=== PATIENT | female | born 1950 | race American Indian/Alaskan Native ===

== ENCOUNTER 2019-09-10 09:17 | Outpatient (CLI) | payer OTHER ==
--- NOTE | 2019-09-10 11:38 | Mammography Report ---
DIGITAL SCREENING MAMMOGRAM WITH CAD, 09/10/2019 INDICATION: Routine screening mammography. TECHNIQUE: Digital bilateral 2D mammography was obtained in the craniocaudal and mediolateral obliq ue projections. This examination was interpreted with the benefit of Computer-Aided Detection analysi s. COMPARISON: 06/02/2018 FINDINGS: Breast Density: The breasts are almost entirely fatty. There is no evidence of dominant mass, suspicious calcifications or architectural distortion in eithe r breast. IMPRESSION: No mammographic evidence of malignancy. Follow up recommendation: Routine yearly BI-RADS Category 1: Negative. A "normal" or negative report should not discourage follow up or biopsy of a clinically significant f inding. A written summary of these findings will be mailed to the patient. The patient will be entered into a mammography reporting system which will generate a reminder letter for the patient's next appointmen t at the appropriate interval. The [employer] recommends yearly mammograms starting at age 40 and continuing as l liu as a woman is in good health. Breast MRI is recommended for women with an approximate 20-25% or greater lifetime risk of breast cancer, including women with a strong family history of breast or ova yu cancer or who have been treated for Hodgkin's disease. Signer Name: Roby Stephenson MD Signed: 09/10/2019 11:34 AM Workstation Name: [id number]
== END 2019-09-10 09:18 | disposition home or self-care (01) ==
LOC: MAMMO 09:17
PROVIDERS: ATTEND Family Medicine
DX: Z12.31 Encounter for screening mammogram for malignant neoplasm of breast (principal); N64.89 Other specified disorders of breast
CPT/HCPCS: 77067

== ENCOUNTER 2020-07-18 13:29 | Emergency (ER) | payer MEDICARE, OTHER ==
[2020-07-18 16:59] VITALS: BP 170/71
--- NOTE | 2020-07-18 17:00 | Emergency Department Report ---
ED Upper Extremity Inj HPI - General Chief Complaint: Extremity Injury, Upper Stated Complaint: LFT ARM INJURY/PAIN Time Seen by Provider: 07/18/20 16:55 Source: patient Mode of arrival: Ambulatory Limitations: No Limitations - History of Present Illness Initial Comments: This is a 69-year-old female nontoxic, well nourished in appearance, no acute signs of distress presents to the ED with c/o of left forearm pain x several days. Patient stated had an injury to left forearm after a trip and fall. Patient denies any other trauma or injuries. Denies any decreased ROM. denies joint swelling, redness, or abnormal gait. Denies any fever, chills, nausea, vomiting, headache, stiff neck, chest pain or shortness of breath. Patient denies any numbness or tingling. Denies any allergies. MD Complaint: Injury to:: left, forearm Other Extremity Injury: Forearm: Left Severity scale (0 -10): 3 Improves With: none Worsens With: none Context: fall Associated Symptoms: denies other symptoms. denies: weakness, numbness, neck pain, suspects foreign body, nausea/vomiting, heard/felt popping sensat - Related Data Allergies Allergy/AdvReac Type Severity Reaction Status Date / Time fluoxetine [From Prozac] AdvReac Rash Unverified 06/02/18 10:10 ED Review of Systems ROS: Stated complaint: LFT ARM INJURY/PAIN Other details as noted in HPI Comment: All other systems reviewed and negative Constitutional: denies: chills, fever Eyes: denies: eye pain, eye discharge, vision change ENT: denies: ear pain, throat pain Respiratory: denies: cough, shortness of breath, wheezing Cardiovascular: denies: chest pain, palpitations Endocrine: no symptoms reported Gastrointestinal: denies: abdominal pain, nausea, diarrhea Genitourinary: denies: urgency, dysuria, discharge Musculoskeletal: denies: back pain, joint swelling, arthralgia Skin: denies: rash, lesions Neurological: denies: headache, weakness, paresthesias Psychiatric: denies: anxiety, depression Hematological/Lymphatic: denies: easy bleeding, easy bruising ED Past Medical Hx - Past Medical History Previous Medical History?: Yes Hx Hypertension: Yes Hx Diabetes: Yes ED Physical Exam - General Limitations: No Limitations General appearance: alert, in no apparent distress - Head Head exam: Present: atraumatic, normocephalic - Eye Eye exam: Present: normal appearance - Neck Neck exam: Present: normal inspection, full ROM - Respiratory Respiratory exam: Absent: respiratory distress - Cardiovascular Cardiovascular Exam: Present: regular rate - Extremities Exam Extremities exam: Present: normal inspection, full ROM, tenderness, normal capillary refill. Absent: joint swelling - Expanded Upper Extremity Exam Left General: Present: normal inspection Shoulder Exam: Present: normal inspection, full ROM. Absent: tenderness, swelling Upper Arm exam: Present: normal inspection, full ROM. Absent: tenderness, swelling Elbow exam: Present: normal inspection, full ROM. Absent: tenderness, swelling Forearm Wrist exam: Present: normal inspection, full ROM, tenderness. Absent: swelling, abrasion, laceration, ecchymosis, deformity, crepidus, dislocation, erythema, tenderness over anatomical snuff box, pain with axial thumb loading Hand Wrist exam: Present: normal inspection, full ROM. Absent: tenderness, swelling Vascular: Present: normal capillary refill. Absent: vascular compromise (neurovascular intact) - Back Exam Back exam: Present: normal inspection, full ROM. Absent: tenderness, CVA tenderness (R), CVA tenderness (L), muscle spasm, paraspinal tenderness, vertebral tenderness, rash noted - Neurological Exam Neurological exam: Present: alert, oriented X3, normal gait - Psychiatric Psychiatric exam: Present: normal affect, normal mood - Skin Skin exam: Present: warm, dry, intact, normal color. Absent: rash ED Course Vital Signs 07/18/20 16:56 Temperature 97.8 F Pulse Rate 86 Respiratory 18 Rate Blood Pressure 170/71 O2 Sat by Pulse 98 Oximetry Vital Signs 07/18/20 16:56 Temperature 97.8 F Pulse Rate 86 Respiratory 18 Rate Blood Pressure 170/71 O2 Sat by Pulse 98 Oximetry - Reevaluation(s) Reevaluation #1: 07/18/20 16:59 Patient is speaking in full sentences with no signs of distress noted. ED Medical Decision Making - Radiology Data Referring Physician: GEOFFREY FROST Patient Name: RENETTA KEMP Date of : 1950 Sex: Female Report Date: 2020-07-18 Report Status: Finalized [address] [address] XRay Report Signed Patient: RENETTA KEMP MR#: [id number] : 1950 Acct:[id number] Age/Sex: 69 / F ADM Date: 07/18/20 Loc: ED Attending Dr: Ordering Physician: GEOFFREY FROST NP Date of Service: 07/18/20 Procedure(s): XR forearm LT Accession Number(s): [id number] cc: GEOFFREY FROST NP Fluoro Time In Minutes: LEFT FOREARM 2 VIEWS INDICATION / CLINICAL INFORMATION: pain s/p fall. COMPARISON: None available. FINDINGS: BONES/JOINT(S): No acute fracture or subluxation. No significant degenerative changes. SOFT TISSUES: No significant abnormality. ADDITIONAL FINDINGS: None. Signer Name: Jono Sahu MD Signed: 07/18/2020 5:45 PM Workstation Name: [id number] Transcribed By: LOUIS Dictated By: Jono Sahu MD Electronically Authenticated By: Jono Sahu MD Signed Date/Time: 07/18/201744 DD/ 44 TD/TT: Referring Physician: GEOFFREY FROST Patient Name: RENETTA KEMP Date of : 1950 Sex: Female Report Date: 2020-07-18 Report Status: Finalized [address] [address] XRay Report Signed Patient: RENETTA KEMP MR#: [id number] : 1950 Acct:[id number] Age/Sex: 69 / F ADM Date: 07/18/20 Loc: ED Attending Dr: Ordering Physician: GEOFFREY FROST NP Date of Service: 07/18/20 Procedure(s): XR wrist 3+V LT Accession Number(s): [id number] cc: GEOFFREY FROST NP Fluoro Time In Minutes: LEFT WRIST 4 VIEWS INDICATION / CLINICAL INFORMATION: pain s/p fall. COMPARISON: None available. FINDINGS: BONES/JOINT(S): No acute fracture or subluxation. 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 SOFT TISSUES: No significant abnormality. ADDITIONAL FINDINGS: None. Signer Name: Jono Sahu MD Signed: 07/18/2020 5:45 PM Workstation Name: [id number] Transcribed By: LOUIS Dictated By: Jono Sahu MD Electronically Authenticated By: Jono Sahu MD Signed Date/Time: 07/18/201744 DD/ 43 TD/TT: - Medical Decision Making This is a 69-year-old female that presents with left forearm strain. Patient is stable and was examined by me. Xray is notified to the patient with no questions noted by the patient. Patient received NUPUR wrap. Instructed to see orthopedic doctor for possible MRI. No joint effusion, no redness, some decreased ROM due to pain. Patient was instructed to Follow-up with a orthopedic doctor in 3-5 days or if symptoms worsen and continue return to emergency room as soon as possible. At time of discharge, the patient does not seem toxic or ill in appearance. No acute signs of distress noted. Patient agrees to discharge treatment plan of care. No further questions noted by the patient. Critical care attestation.: If time is entered above; I have spent that time in minutes in the direct care of this critically ill patient, excluding procedure time. ED Disposition Clinical Impression: Strain of left forearm Disposition: DC-01 TO HOME OR SELFCARE Is pt being admited?: No Does the pt Need Aspirin: No Condition: Stable Instructions: RICE Therapy for Routine Care of Injuries, [id number] Additional Instructions: Follow-up with a orthopedic doctor in 3-5 days or if symptoms worsen and continue return to the emergency department as soon as possible. Referrals: PRIMARY MD PAULETTE [Primary Care Provider] - 3-5 Days MARY GUAN MD [Staff Physician] - 3-5 Days
--- NOTE | 2020-07-18 17:49 | XRay Report ---
LEFT WRIST 4 VIEWS INDICATION / CLINICAL INFORMATION: pain s/p fall. COMPARISON: None available. FINDINGS: BONES/JOINT(S): No acute fracture or subluxation. 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 SOFT TISSUES: No significant abnormality. ADDITIONAL FINDINGS: None. Signer Name: Jono Sahu MD Signed: 07/18/2020 5:45 PM Workstation Name: [id number]
--- NOTE | 2020-07-18 17:49 | XRay Report ---
LEFT FOREARM 2 VIEWS INDICATION / CLINICAL INFORMATION: pain s/p fall. COMPARISON: None available. FINDINGS: BONES/JOINT(S): No acute fracture or subluxation. No significant degenerative changes. SOFT TISSUES: No significant abnormality. ADDITIONAL FINDINGS: None. Signer Name: Jono Sahu MD Signed: 07/18/2020 5:45 PM Workstation Name: [id number]
== END 2020-07-18 18:20 | disposition home or self-care (01) ==
LOC: ED 13:29
DX: S56.912A Strain of unspecified muscles, fascia and tendons at forearm level, left arm, initial encounter (principal); I10 Essential (primary) hypertension; E11.9 Type 2 diabetes mellitus without complications; Z79.899 Other long term (current) drug therapy; Z88.8 Allergy status to other drugs, medicaments and biological substances; W01.0XXA Fall on same level from slipping, tripping and stumbling without subsequent striking against object, initial encounter; Y93.89 Activity, other specified; Y92.89 Other specified places as the place of occurrence of the external cause; Y99.8 Other external cause status
CPT/HCPCS: 99283

== ENCOUNTER 2020-11-08 10:51 | Outpatient (CLI) | payer OTHER ==
--- NOTE | 2020-11-08 12:45 | Mammography Report ---
BILATERAL DIGITAL SCREENING MAMMOGRAM WITH CAD HISTORY: Screening mammogram. TECHNIQUE: Routine digital mammographic imaging performed. This examination was interpreted with steve ng benefit of Computer-aided Detection analysis. COMPARISON: 09/10/2019, 06/02/2018. FINDINGS: Breast Density: scattered fibroglandular appearance of the breast tissue. Digital CC and MLO views demonstrate no mammographic evidence of malignancy. IMPRESSION: No mammographic evidence of malignancy. If the clinical examination remains stable, recommend bilate ral mammogram in approximately one year. BIRADS 1: Negative. FURTHER INFORMATION: According to the [employer], yearly mammograms are recommend ed starting at age 40 and continuing as long as a woman is in good health. Clinical Breast Exams shou ld be part of a periodic health exam-about every 3 years for women in their 20s and 30s and every yea r for women 40 and over. Breast self exam is an option for women starting in their 20s. Any breast ch gonzalo noted on a breast self exam should be reported promptly to the patient's healthcare provider. Br east MRI is recommended for women with an approximately 20-25% or greater lifetime risk of breast can cer, including women with a strong family history of breast or ovarian cancer and women who have been treated for Hodgkin's disease. A negative Mammography report should not discourage follow up or biopsy of a clinically significant f inding and/or abnormality. Dense breast tissue may obscure small neoplasms. The patient will be entered into a reminder system with a target due date for the next screening mamm ogram. Signer Name: Ethan Bryan MD Signed: 11/08/2020 12:40 PM Workstation Name: [id number]
== END 2020-11-08 10:52 | disposition home or self-care (01) ==
LOC: MAMMO 10:51
PROVIDERS: ATTEND Family Medicine
DX: Z12.31 Encounter for screening mammogram for malignant neoplasm of breast (principal)
CPT/HCPCS: 77067

== ENCOUNTER 2021-11-09 09:34 | Outpatient (CLI) | payer OTHER ==
--- NOTE | 2021-11-09 17:35 | Mammography Report ---
DIGITAL SCREENING MAMMOGRAM WITH CAD, 11/09/2021 CLINICAL INFORMATION / INDICATION: Routine screening TECHNIQUE: Digital bilateral 2D mammography was obtained in the craniocaudal and mediolateral obliqu e projections. This examination was interpreted with the benefit of Computer-Aided Detection analysis . COMPARISON: 11/08/2020 FINDINGS: Breast Density: There are scattered areas of fibroglandular density. No dominant mass, suspicious calcifications, or architectural distortion in either breast. Benign-appearing calcifications are stable. IMPRESSION: No mammographic evidence of malignancy. Follow up recommendation: Routine yearly BI-RADS Category 2: BENIGN. A "normal" or negative report should not discourage follow up or biopsy of a clinically significant f inding. A written summary of these findings will be mailed to the patient. The patient will be entered into a mammography reporting system which will generate a reminder letter for the patient's next appointmen t at the appropriate interval. The [employer] recommends yearly mammograms starting at age 40 and continuing as l liu as a woman is in good health. Breast MRI is recommended for women with an approximate 20-25% or greater lifetime risk of breast cancer, including women with a strong family history of breast or ova yu cancer or who have been treated for Hodgkin's disease. Signer Name: Manuel Starr MD Signed: 11/09/2021 5:30 PM Workstation Name: [id number]
== END 2021-11-09 09:35 | disposition home or self-care (01) ==
LOC: MAMMO 09:34
PROVIDERS: ATTEND Family Medicine
DX: Z12.31 Encounter for screening mammogram for malignant neoplasm of breast (principal)
CPT/HCPCS: 77067